=== PATIENT | female | born 1990 | race Caucasian/White ===

== ENCOUNTER 2024-09-16 09:23 | Day surgery (SDC) | payer OTHER ==
[~2024-09-16] VITALS: Ht 157.5 cm; Wt 73.1 kg
[2024-09-16] MEDS ORDERED: LINA290C PO (09:38)
[2024-09-16] MEDS ORDERED: BACL10TA PO (09:38)
[2024-09-16] MEDS ORDERED: LEVE-71 PO (09:38)
[2024-09-16] MEDS ORDERED: DULO30CA89 PO (09:38)
[2024-09-16] MEDS ORDERED: SERT-162 PO (09:38)
[2024-09-16] MEDS: SODIUM CHLORIDE 0.9% 1,000 ML IV ONE (10:10)
[2024-09-16] MEDS ORDERED: PROPOFOL 1% 20 ML VIAL IVP ONE (12:00)
[2024-09-16] MEDS ORDERED: LIDOCAINE/PF 2% 5 ML VIAL ONE (12:00)
== END 2024-09-16 12:20 | disposition home or self-care (01) ==
LOC: SURGERY 09:23
PROVIDERS: ATTEND Internal Medicine Gastroenterology
DX: K92.1 Melena (principal); R19.4 Change in bowel habit; G43.909 Migraine, unspecified, not intractable, without status migrainosus; G80.8 Other cerebral palsy; G40.909 Epilepsy, unspecified, not intractable, without status epilepticus; Z79.899 Other long term (current) drug therapy; Z98.890 Other specified postprocedural states
CPT/HCPCS: 45378; 84703; 36415; J2704; J3490